=== PATIENT | male | born 1940 | race Caucasian/White ===

== ENCOUNTER 2025-09-07 15:00 | Outpatient (AMB) | payer MEDICARE, SELFPAY ==
--- NOTE | 2025-09-07 15:05 | HO.NEPHOV ---
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 Required: No Accompanied by: Self / Same As Patient Allergies No Known Allergies Allergy (Verified 09/07/25 15:08) Medication List - Last Reconciled 09/07/25 by Juan Hopkins MD aspirin 81 mg PO DAILY atorvastatin 80 mg PO DAILY dapagliflozin propanediol (Farxiga) 10 mg PO DAILY ferrous sulfate 325 mg PO DAILY metoprolol succinate ER 25 mg PO DAILY pantoprazole 40 mg PO DAILY sacubitril-valsartan 24-26 mg (Entresto) 1 tab PO BID HPI Comments Details: Ashwin is a pleasant 84-year-old male referred for evaluation of CKD Recent labs showed a creatinine of 1.43, and his kidney function is estimated to be at 48%. EGFR was 48 mL/minute. The patient has a significant cardiac history including coronary artery disease, hypertension, hyperlipidemia, acute and chronic congestive heart failure, and ischemic cardiomyopathy with an ejection fraction of 25-30%. He has atrial fibrillation and underwent a Watchman procedure last week. The patient reports occasional dizziness for a few seconds upon getting up from bed in the morning. His medications include Farxiga 10 mg and Entresto; he takes Lasix as needed for a three-pound weight gain in one day or for coughing. f He reports long-standing urinary hesitancy, noting a slow stream, but denies other urinary issues. He has not had a prior kidney ultrasound. He has significant anemia with a recent hemoglobin of 8.8; a lab from the prior year showed a hemoglobin of 9.9. He has a history of a GI bleed requiring a transfusion and is currently taking iron tablets, which cause his stool to be black. He also reports a past bleeding complication from blood thinners. The patient lives with his and is a former smoker, having quit 30-40 years ago. He is careful with his salt intake for his heart condition. There is no family history of cancer. [facility] Medical History (Updated 09/07/25 @ 15:28 by Juan Hopkins MD) New onset atrial fibrillation Ischemic cardiomyopathy Iron deficiency anemia GERD (gastroesophageal reflux disease) Hyperlipidemia Hypertension CAD (coronary artery disease) Review of Systems Const Denies fever(s) and Denies weight loss Card Denies chest pain Resp Denies cough and Denies hemoptysis GI Denies abdominal pain, Denies diarrhea and Denies nausea Musc Denies back pain Neuro Denies focal weakness Physical Exam Vital Signs: Last Vital Signs Pulse 120 H 09/07/25 15:06 BP 100/52 L 09/07/25 15:06 Pulse Ox 98 09/07/25 15:06 Oxygen Delivery Method Room Air 09/07/25 15:06 BMI result Body Mass Index 30.2 Comfortable Neck supple no JVD. Lungs entry equal no rales. Heart S1-S2 heard no gallop or rub. Abdomen soft nontender. Neuro alert awake oriented. No asterixis. Extremities no edema. Results Reviewed Results Reviewed: 08/22/2025 BUN 30 creatinine 1.43 EGFR 48 mL/minute Sodium 146 potassium 4.4 urine albumin creatinine ratio 32 hemoglobin 8.8 MCV 97 iron 59 TIBC 213 platelets 82,000 Assessment & Plan Assessment & Plan (1) CKD (chronic kidney disease): Code(s): N18.9 - Chronic kidney disease, unspecified Category: Medical (2) Anemia: Code(s): D64.9 - Anemia, unspecified Category: Medical Plan 1. Chronic Kidney Disease Stage III - The patient's kidney function is at 48%, Most likely due to the combination of chronic hypoperfusion in the setting of low cardiac output and age-related nephron loss. Obstructive uropathy should certainly be ruled out. Based on recent urine studies I do not believe he has any active glomerular nephritis or interstitial disease. Goal is to slow the progression of renal disease - No medications were made today and continue current medications, including Entresto, Avoid hypotension and nephrotoxic agents - The patient was counseled to follow a low-salt diet and to avoid NSAIDs such as Aleve, Advil, and Motrin. - A kidney ultrasound and repeat bloodwork will be ordered to be completed before the next visit. - Follow-up is scheduled for October. We will screen for secondary hyperparathyroidism prior to next visit. 2. Congestive Heart Failure Currently appears euvolemic - The patient's blood pressure is noted to be low, which is an expected effect of his medication, Entresto. - Current medications, including Farxiga and Entresto, will be continued without changes. - The patient will continue to monitor for signs of fluid retention and use Lasix as needed. 3. 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 - The patient has significant anemia with a hemoglobin of 8.8. - He is taking iron supplements, which can cause black stools. - Hemoglobin levels will be monitored via a blood test in approximately six weeks. We will reassess hemoglobin and decide if he will benefit from erythropoietin replacement therapy. Orders: Orders Basic Metabolic Panel 6 Weeks N18.9 - Chronic kidney disease, unspecified Complete Blood Count Auto Diff 6 Weeks N18.9 - Chronic kidney disease, unspecified US renal BI 6 Weeks N18.9 - Chronic kidney disease, unspecified Parathyroid Hormone Intact 6 Weeks N18.9 - Chronic kidney disease, unspecified UA and rflx microscopic 6 Weeks N18.9 - Chronic kidney disease, unspecified Coding Level of Care Code New Pt Level 4 (61012) Diagnoses CKD (chronic kidney disease) N18.9 Anemia D64.9
[2025-09-07 15:06] VITALS: BP 100/52; PULSE 120; O2SAT 98; BMI 30.2
--- OUTSIDE RECORDS SUMMARY | 2025-09-08 03:36 | XMS_ITS | Patient Health Record ---
Author Organization [email or web address] Address [address] [place] [address] Care Team Providers Care Order Takers Supervisor Name Role Phone OZZY ANDERSON Primary Care Provider [phone] Allergies No Known Allergies Results Component Value Reference Range Notes [id number] Reviewed date:08/23/2025 05:48:06 PM Interpretation: Performing Lab:[facility], [address], Phone - [phone], Director - MDJodry Notes/Report: Ferritin 276 30-400 ng/mL Iron and TIBC-[id number] Reviewed date:08/23/2025 05:48:10 PM Interpretation: Performing Lab:[facility], [address], Phone - [phone], Director - MDJodry Notes/Report: Iron Bind.Cap.(TIBC) 213 250-450 ug/dL UIBC 154 111-343 ug/dL Iron 59 38-169 ug/dL Iron Saturation 28 15-55 % CBC, Platelet, No Differenti al-[id number] Reviewed date:08/23/2025 05:48:14 PM Interpretation: Performing Lab:[facility], [address], Phone - [phone], Director - MDJodry Notes/Report: WBC 3.0 3.4-10.8 x10E3/uL RBC 3.06 4.14-5.80 x10E6/uL Hemoglobin 8.8 13.0-17.7 g/dL Hematocrit 29.6 37.5-51.0 % MCV 97 79-97 fL MCH 28.8 26.6-33.0 pg MCHC 29.7 31.5-35.7 g/dL RDW 18.6 11.6-15.4 % Platelets 82 150-450 x10E3/uL Hematology Comments: Note: CBC met reflex criteria for review of peripheral smear by medical laboratory professional. Automated results were confirmed by smear review. Albumin/Creatinine Ratio,Uri [id number] Reviewed date:08/23/2025 05:48:21 PM Interpretation: Performing Lab:[facility], [address] [place] [address], Phone - [phone], Director - MDdry Notes/Report: Creatinine, Urine 101.8 Not Estab. mg/dL Albumin, Urine 32.8 Not Estab. ug/mL Alb/Creat Ratio 32 0-29 mg/g creat Normal: 0 - 29 Moderately increased: 30 - 300 Severely increased: >300 Lipid Panel-[id number] Reviewed date:08/23/2025 05:48:25 PM Interpretation: Performing Lab:[facility], [address] [place] [address], Phone - [phone], Director - [facility] Notes/Report: Cholesterol, Total 72 100-199 mg/dL Triglycerides 91 0-149 mg/dL HDL Cholesterol 21 >39 mg/dL VLDL Cholesterol Ga 18 5-40 mg/dL LDL Chol Calc (NIH) 33 0-99 mg/dL Comp. Metabolic Panel ([id number] Reviewed date:08/23/2025 05:48:31 PM Interpretation: Performing Lab:[facility], [address] [place] [address], Phone - [phone], Director - [facility] Notes/Report: Glucose 99 70-99 mg/dL BUN 30 8-27 mg/dL Creatinine 1.43 0.76-1.27 mg/dL eGFR 48 >59 mL/min/1.73 BUN/Creatinine Ratio 21 10-24 Sodium 146 134-144 mmol/L Potassium 4.4 3.5-5.2 mmol/L Chloride 110 96-106 mmol/L Carbon Dioxide, Total 21 20-29 mmol/L Calcium 8.8 8.6-10.2 mg/dL Protein, Total 6.9 6.0-8.5 g/dL Albumin 4.2 3.7-4.7 g/dL Globulin, Total 2.7 1.5-4.5 g/dL Bilirubin, Total 2.0 0.0-1.2 mg/dL Alkaline Phosphatase 164 48-129 IU/L AST (SGOT) 12 0-40 IU/L ALT (SGPT) 10 0-44 IU/L Reason For Referral Reason CKD STAGE 3A- DR AHMET MELTON Please evaluate and treat Diagnosis 1 Chronic kidney disea se, stage 3a (N18.31) Referral Organization [facility] Referring Provider First Name OZZY Referring Provider Last Name JUSTIN Referring Provider Speciality Internal M edicine Referred Provider Specialty Nephrology General Notes Please call the marck ent to schedule the appointment, Encounter Darnell meek Charmain 08/29/2025 04:14:42 PM > Referral Priority Routine Medications Medication SIG (Take, Route, Frequency, Duration) Notes Start Date End Date Status Pantoprazole Sodium 40 MG 1 tablet Orall y Once a day Active Metoprolol Succinate ER 50 MG 1 tablet Orally Once a day; Duration: 90 days Active Atorvastatin Calcium 80 MG 1 tablet Orally Once a day; Duration: 90 days Active Isosorbide Mononitrate ER 30 MG 1 tablet in the morning Orally Once a day Not-Taking Farxiga 10 MG 1 tablet Orally Once a day Active Iron 325 (65 Fe) MG 1 tablet Orally twic e a day Active Aspir-Low 81 MG 1 tablet Orally Once a day Active Social History Tobacco Use: Social History Observation Description Date Details (start date - stop date) Former Smoker NA - NA Tobacco Use/Smoking Question Answer Notes Are you a former smoker How long has it been since you last smoked? > 10 years Problems Problem Type SNOMED Code ICD Code Onset Dates Problem Status W/U Status Risk Notes Problem Iron deficiency anemia (35826034) Iron deficiency anemia, unspecified (D50.9) Active confirmed Problem Anemia (193879624) Anemia, unspecified (D64.9) Active confirmed Problem Mixed hyperlipidemia (121123144) Mixed hyperlipidemia (E78.2) Active confirmed Problem Atherosclerotic heart disease of [place] coronary artery without angina pectoris (348997145185206) Atherosclerotic heart disease of [place] coronary artery without angina pectoris (I25.10) Active confirmed Problem Aortic valve disorder (8082457) Nonrheumatic aortic (valve) stenosis (I35.0) Active confirmed Problem Chronic systolic heart failure (850575595) Chronic systolic (congestive) heart failure (I50.22) Active confirmed Problem Gastro-esophageal reflux disease without esophagitis (917142747) Gastro-esophageal reflux disease without esophagitis (K21.9) Active confirmed Problem Essential hypertension (90615080) Essential (primary) hypertension (I10) Active confirmed Problem Chronic kidney disease stage 3A (disorder) (494530416) Chronic kidney disease, stage 3a (N18.31) Active confirmed Vital Signs Heart Rate 100 /min 08/25/2025 Temperature 96.2 degrees Fahrenheit 08/25/2025 Oximetry 96 % 08/25/2025 Blood pressure diastolic 68 mm Hg 08/25/2025 Height 5'6 in 08/25/2025 Blood pressure systolic 110 mm Hg 08/25/2025 Weight 192.9 lbs 08/25/2025 BMI 31.13 kg/m2 08/25/2025 Encounters Encounter Location Date Provider Diagnosis [address] [place] [address] 09/14/2024 OZZY ANDERSON Atherosclerotic hear t disease of [place] coronary artery without angina pectoris I25.10 ; Essential (primary) hypertension I10 ; Mixed hyperlipidemia E78.2 ; Gastro-esophageal reflux disease without esophagitis K21.9 and Iron deficiency anemia, unspecified D50.[address] [place] [address] 02/22/2025 OZZY ANDERSON Encounter for genera l adult medical examination without abnormal findings Z00.00 ; Atherosclerotic heart disease of [place] coronary artery without angina pectoris I25.10 ; Essential (primary) hypertension I10 ; Mixed hyperlipidemia E78.2 ; Gastro-esophageal reflux disease without esophagitis K21.9 ; Iron deficiency anemia, unspecified D50.9 ; Chronic kidney disease, stage 3a N18.31 and Nonrheumatic aortic (valve) stenosis I35.[address] [place] [address] 08/25/2025 OZZY ANDERSON Essential (primary) hypertension I10 ; Chronic systolic (congestive) heart failure I50.22 ; Atherosclerotic heart disease of [place] coronary artery without angina pectoris I25.10 ; Mixed hyperlipidemia E78.2 ; Gastro-esophageal reflux disease without esophagitis K21.9 ; Iron deficiency anemia, unspecified D50.9 ; Chronic kidney disease, stage 3a N18.31 ; Nonrheumatic aortic (valve) stenosis I35.0 and Anemia, unspecified D64.9 [facility] [address] [place] [address] 09/13/2024 [facility] [address] [place] [address] 01/20/[address] [place] [address] 01/20/[address] [place] [address] 02/25/[address] [place] [address] 08/29/2025 [facility] Assessments Encounter Date Diagnosis (ICD Code) Assessment Notes Treatment Notes Treatment Clinical Notes Section Notes 09/14/2024 Atherosclerotic heart disease of [place] coronary artery without angina pectoris (ICD-10 - I25.10) Mr Ryan is an 83-year-old gentleman with CAD, hypertension, hyperlipidemia, GERD and iron deficiency anemia here for follow up after hospital admission for chest pain. Plan is as follows: Chest pain. Work up in the hospital was negative. It could have been musculoskeletal pain because he was working in his backyard for long hours. He was given isosorbide mononitrate ER 30 mg on discharge. Continue current medication and no need for any further intervention. CAD. s/p stent placement x2, first was in 2002 and second placement was in April 2023. He is on right medications and he follows up with Cardiology. Hypertension. Blood pressure well controlled on current regimen. Hyperlipidemia. Continue Atorvastatin 80 MG daily. GERD/upper GI bleed. Stable on Pantoprazole 40 MG once a day. Iron deficiency anemia. Continue iron supplements three times a week. Screening blood work before next appointment. General health concerns discussed with patient. Scribe services used to formulate this note under HIPAA compliance and under [place] law mandated for scribe services. Patient aware of service. Verbal consent and written consent taken from the patient. Patient understands and verbalizes understanding of the scribes services and all questions answered regarding scribes services. Patient agrees to use of scribes services. 09/14/2024 Essential (primary) hypertension (ICD-10 - I10) Mr Ryan is an 83-year-old gentleman with CAD, hypertension, hyperlipidemia, GERD and iron deficiency anemia here for follow up after hospital admission for chest pain. Plan is as follows: Chest pain. Work up in the hospital was negative. It could have been musculoskeletal pain because he was working in his backyard for long hours. He was given isosorbide mononitrate ER 30 mg on discharge. Continue current medication and no need for any further intervention. CAD. s/p stent placement x2, first was in 2002 and second placement was in April 2023. He is on right medications and he follows up with Cardiology. Hypertension. Blood pressure well controlled on current regimen. Hyperlipidemia. Continue Atorvastatin 80 MG daily. GERD/upper GI bleed. Stable on Pantoprazole 40 MG once a day. Iron deficiency anemia. Continue iron supplements three times a week. Screening blood work before next appointment. General health concerns discussed with patient. Scribe services used to formulate this note under HIPAA compliance and under [place] law mandated for scribe services. Patient aware of service. Verbal consent and written consent taken from the patient. Patient understands and verbalizes understanding of the scribes services and all questions answered regarding scribes services. Patient agrees to use of scribes services. 02/22/2025 Atherosclerotic heart disease of [place] coronary artery without angina pectoris (ICD-10 - I25.10) Mr. Ryan is pleasant 84-year-old gentleman with coronary artery disease and status post PCI to mid and distal RCA in 2002 followed by PCI to mid LAD in 2015 and again in March 2023, new onset atrial fibrillation, lower GI bleed and had 8 units of packed red blood cells, acid reflux, chronic kidney disease stage IIIa, hypertension, hyperlipidemia and obesity is here for annual physical. He was recently admitted at [facility] and was found to have new onset atrial fibrillation with RVR and acute on chronic congestive heart failure. He recently saw his sheeter machine operator Dr. Maria. Plan is as follows Ischemic cardiomyopathy/CHF with preserved EF. His EF was 50% but on last admission at [facility] EF is 25-30%. He was taken off Lasix and started on Farxiga 10 mg along with beta-blockers. advised to do daily weights, avoids salt and if his weight is going up he will take Lasix as needed and inform us. New onset atrial fibrillation. He is not a candidate for anticoagulation because of his GI bleed. Currently on aspirin and he has appointment for watchman procedure. Severe to moderate aortic stenosis. Cardiology will do periodic echocardiogram for surveillance. Hypertension/hyper lipidemia. Blood pressure reasonably controlled on current regimen. He is on atorvastatin 80 mg daily which she will continue and check blood work GI bleed/acid reflux. Continue Protonix 40 mg daily. Obesity. Dietary restrictions discussed and advised to lose on average 6 pounds a month. He is up-to-date on age specific screening. He is full code and his is his healthcare proxy. 02/22/2025 Encounter for general adult medical examination without abnormal findings (ICD-10 - Z00.00) Mr. Ryan is pleasant 84-year-old gentleman with coronary artery disease and status post PCI to mid and distal RCA in 2002 followed by PCI to mid LAD in 2015 and again in March 2023, new onset atrial fibrillation, lower GI bleed and had 8 units of packed red blood cells, acid reflux, chronic kidney disease stage IIIa, hypertension, hyperlipidemia and obesity is here for annual physical. He was recently admitted at [facility] and was found to have new onset atrial fibrillation with RVR and acute on chronic congestive heart failure. He recently saw his sheeter machine operator Dr. Maria. Plan is as follows Ischemic cardiomyopathy/CHF with preserved EF. His EF was 50% but on last admission at [facility] EF is 25-30%. He was taken off Lasix and started on Farxiga 10 mg along with beta-blockers. advised to do daily weights, avoids salt and if his weight is going up he will take Lasix as needed and inform us. New onset atrial fibrillation. He is not a candidate for anticoagulation because of his GI bleed. Currently on aspirin and he has appointment for watchman procedure. Severe to moderate aortic stenosis. Cardiology will do periodic echocardiogram for surveillance. Hypertension/hyper lipidemia. Blood pressure reasonably controlled on current regimen. He is on atorvastatin 80 mg daily which she will continue and check blood work GI bleed/acid reflux. Continue Protonix 40 mg daily. Obesity. Dietary restrictions discussed and advised to lose on average 6 pounds a month. He is up-to-date on age specific screening. He is full code and his is his healthcare proxy. 08/25/2025 Chronic systolic (congestive) heart failure (ICD-10 - I50.22) Mr. Ryan is carol 84-year-old gentleman with coronary artery disease and status post PCI to mid and distal RCA in 2002 followed by PCI to mid LAD in 2015 and again in March 2023, new onset atrial fibrillation, lower GI bleed and had 8 units of packed red blood cells, acid reflux, chronic kidney disease stage IIIa, hypertension, hyperlipidemia and obesity is here for follow-up on blood work He was recently admitted at [facility] and was found to have new onset atrial fibrillation with RVR and acute on chronic Congestive heart failure. He recently saw his sheeter machine operator Dr. Maria. Plan is as follows Ischemic cardiomyopathy/CHF with preserved EF. His EF was 50% but on last admission at [facility] EF is 25-30%. He was taken off Lasix and started on Farxiga 10 mg along with beta-blockers. advised to do daily weights, avoids salt and if his weight is going up he will take Lasix as needed and inform us. New onset atrial fibrillation. He is not a candidate for anticoagulation because of his GI bleed. Currently on aspirin and he has appointment for watchman procedure. Severe to moderate aortic stenosis. Cardiology will do periodic echocardiogram for surveillance. Hypertension/hyper lipidemia. Blood pressure reasonably controlled on current regimen. He is on atorvastatin 80 mg daily which she will continue and check blood work. Chronic kidney disease stage IIIa. He is stable at this point in time. He is on the right medications. Avoid NSAIDs. Daily weights. GI bleed/acid reflux. Continue Protonix 40 mg daily. Anemia. Continue ferrous sulfate 325 mg 1 tablet twice a day. Obesity. Dietary restrictions discussed and advised to lose on average 6 pounds a month. He is up-to-date on age specific screening. He is full code and his is his healthcare proxy. 08/25/2025 Essential (primary) hypertension (ICD-10 - I10) Mr. Ryan is carol 84-year-old gentleman with coronary artery disease and status post PCI to mid and distal RCA in 2002 followed by PCI to mid LAD in 2015 and again in March 2023, new onset atrial fibrillation, lower GI bleed and had 8 units of packed red blood cells, acid reflux, chronic kidney disease stage IIIa, hypertension, hyperlipidemia and obesity is here for follow-up on blood work He was recently admitted at [facility] and was found to have new onset atrial fibrillation with RVR and acute on chronic Congestive heart failure. He recently saw his sheeter machine operator Dr. Maria. Plan is as follows Ischemic cardiomyopathy/CHF with preserved EF. His EF was 50% but on last admission at [facility] EF is 25-30%. He was taken off Lasix and started on Farxiga 10 mg along with beta-blockers. advised to do daily weights, avoids salt and if his weight is going up he will take Lasix as needed and inform us. New onset atrial fibrillation. He is not a candidate for anticoagulation because of his GI bleed. Currently on aspirin and he has appointment for watchman procedure. Severe to moderate aortic stenosis. Cardiology will do periodic echocardiogram for surveillance. Hypertension/hyper lipidemia. Blood pressure reasonably controlled on current regimen. He is on atorvastatin 80 mg daily which she will continue and check blood work. Chronic kidney disease stage IIIa. He is stable at this point in time. He is on the right medications. Avoid NSAIDs. Daily weights. GI bleed/acid reflux. Continue Protonix 40 mg daily. Anemia. Continue ferrous sulfate 325 mg 1 tablet twice a day. Obesity. Dietary restrictions discussed and advised to lose on average 6 pounds a month. He is up-to-date on age specific screening. He is full code and his is his healthcare proxy. 02/22/2025 Essential (primary) hypertension (ICD-10 - I10) Mr. Ryan is pleasant 84-year-old gentleman with coronary artery disease and status post PCI to mid and distal RCA in 2002 followed by PCI to mid LAD in 2015 and again in March 2023, new onset atrial fibrillation, lower GI bleed and had 8 units of packed red blood cells, acid reflux, chronic kidney disease stage IIIa, hypertension, hyperlipidemia and obesity is here for annual physical. He was recently admitted at [facility] and was found to have new onset atrial fibrillation with RVR and acute on chronic congestive heart failure. He recently saw his sheeter machine operator Dr. Maria. Plan is as follows Ischemic cardiomyopathy/CHF with preserved EF. His EF was 50% but on last admission at [facility] EF is 25-30%. He was taken off Lasix and started on Farxiga 10 mg along with beta-blockers. advised to do daily weights, avoids salt and if his weight is going up he will take Lasix as needed and inform us. New onset atrial fibrillation. He is not a candidate for anticoagulation because of his GI bleed. Currently on aspirin and he has appointment for watchman procedure. Severe to moderate aortic stenosis. Cardiology will do periodic echocardiogram for surveillance. Hypertension/hyper lipidemia. Blood pressure reasonably controlled on current regimen. He is on atorvastatin 80 mg daily which she will continue and check blood work GI bleed/acid reflux. Continue Protonix 40 mg daily. Obesity. Dietary restrictions discussed and advised to lose on average 6 pounds a month. He is up-to-date on age specific screening. He is full code and his is his healthcare proxy. 08/25/2025 Atherosclerotic heart disease of [place] coronary artery without angina pectoris (ICD-10 - I25.10) Mr. Ryan is pleasant 84-year-old gentleman with coronary artery disease and status post PCI to mid and distal RCA in 2002 followed by PCI to mid LAD in 2015 and again in March 2023, new onset atrial fibrillation, lower GI bleed and had 8 units of packed red blood cells, acid reflux, chronic kidney disease stage IIIa, hypertension, hyperlipidemia and obesity is here for follow-up on blood work He was recently admitted at [facility] and was found to have new onset atrial fibrillation with RVR and acute on chronic Congestive heart failure. He recently saw his sheeter machine operator Dr. Maria. Plan is as follows Ischemic cardiomyopathy/CHF with preserved EF. His EF was 50% but on last admission at [facility] EF is 25-30%. He was taken off Lasix and started on Farxiga 10 mg along with beta-blockers. advised to do daily weights, avoids salt and if his weight is going up he will take Lasix as needed and inform us. New onset atrial fibrillation. He is not a candidate for anticoagulation because of his GI bleed. Currently on aspirin and he has appointment for watchman procedure. Severe to moderate aortic stenosis. Cardiology will do periodic echocardiogram for surveillance. Hypertension/hyper lipidemia. Blood pressure reasonably controlled on current regimen. He is on atorvastatin 80 mg daily which she will continue and check blood work. Chronic kidney disease stage IIIa. He is stable at this point in time. He is on the right medications. Avoid NSAIDs. Daily weights. GI bleed/acid reflux. Continue Protonix 40 mg daily. Anemia. Continue ferrous sulfate 325 mg 1 tablet twice a day. Obesity. Dietary restrictions discussed and advised to lose on average 6 pounds a month. He is up-to-date on age specific screening. He is full code and his is his healthcare proxy. 09/14/2024 Mixed hyperlipidemia (ICD-10 - E78.2) Mr Ryan is an 83-year-old gentleman with CAD, hypertension, hyperlipidemia, GERD and iron deficiency anemia here for follow up after hospital admission for chest pain. Plan is as follows: Chest pain. Work up in the hospital was negative. It could have been musculoskeletal pain because he was working in his backyard for long hours. He was given isosorbide mononitrate ER 30 mg on discharge. Continue current medication and no need for any further intervention. CAD. s/p stent placement x2, first was in 2002 and second placement was in April 2023. He is on right medications and he follows up with Cardiology. Hypertension. Blood pressure well controlled on current regimen. Hyperlipidemia. Continue Atorvastatin 80 MG daily. GERD/upper GI bleed. Stable on Pantoprazole 40 MG once a day. Iron deficiency anemia. Continue iron supplements three times a week. Screening blood work before next appointment. General health concerns discussed with patient. Scribe services used to formulate this note under HIPAA compliance and under [place] law mandated for scribe services. Patient aware of service. Verbal consent and written consent taken from the patient. Patient understands and verbalizes understanding of the scribes services and all questions answered regarding scribes services. Patient agrees to use of scribes services. 02/22/2025 Mixed hyperlipidemia (ICD-10 - E78.2) Mr. Ryan is pleasant 84-year-old gentleman with coronary artery disease and status post PCI to mid and distal RCA in 2002 followed by PCI to mid LAD in 2015 and again in March 2023, new onset atrial fibrillation, lower GI bleed and had 8 units of packed red blood cells, acid reflux, chronic kidney disease stage IIIa, hypertension, hyperlipidemia and obesity is here for annual physical. He was recently admitted at [facility] and was found to have new onset atrial fibrillation with RVR and acute on chronic congestive heart failure. He recently saw his sheeter machine operator Dr. Maria. Plan is as follows Ischemic cardiomyopathy/CHF with preserved EF. His EF was 50% but on last admission at [facility] EF is 25-30%. He was taken off Lasix and started on Farxiga 10 mg along with beta-blockers. advised to do daily weights, avoids salt and if his weight is going up he will take Lasix as needed and inform us. New onset atrial fibrillation. He is not a candidate for anticoagulation because of his GI bleed. Currently on aspirin and he has appointment for watchman procedure. Severe to moderate aortic stenosis. Cardiology will do periodic echocardiogram for surveillance. Hypertension/hyper lipidemia. Blood pressure reasonably controlled on current regimen. He is on atorvastatin 80 mg daily which she will continue and check blood work GI bleed/acid reflux. Continue Protonix 40 mg daily. Obesity. Dietary restrictions discussed and advised to lose on average 6 pounds a month. He is up-to-date on age specific screening. He is full code and his is his healthcare proxy. 09/14/2024 Gastro-esophageal reflux disease without esophagitis (ICD-10 - K21.9) Mr Ryan is an 83-year-old gentleman with CAD, hypertension, hyperlipidemia, GERD and iron deficiency anemia here for follow up after hospital admission for chest pain. Plan is as follows: Chest pain. Work up in the hospital was negative. It could have been musculoskeletal pain because he was working in his backyard for long hours. He was given isosorbide mononitrate ER 30 mg on discharge. Continue current medication and no need for any further intervention. CAD. s/p stent placement x2, first was in 2002 and second placement was in April 2023. He is on right medications and he follows up with Cardiology. Hypertension. Blood pressure well controlled on current regimen. Hyperlipidemia. Continue Atorvastatin 80 MG daily. GERD/upper GI bleed. Stable on Pantoprazole 40 MG once a day. Iron deficiency anemia. Continue iron supplements three times a week. Screening blood work before next appointment. General health concerns discussed with patient. Scribe services used to formulate this note under HIPAA compliance and under [place] law mandated for scribe services. Patient aware of service. Verbal consent and written consent taken from the patient. Patient understands and verbalizes understanding of the scribes services and all questions answered regarding scribes services. Patient agrees to use of scribes services. 08/25/2025 Mixed hyperlipidemia (ICD-10 - E78.2) Mr. Ryan is pleasant 84-year-old gentleman with coronary artery disease and status post PCI to mid and distal RCA in 2002 followed by PCI to mid LAD in 2015 and again in March 2023, new onset atrial fibrillation, lower GI bleed and had 8 units of packed red blood cells, acid reflux, chronic kidney disease stage IIIa, hypertension, hyperlipidemia and obesity is here for follow-up on blood work He was recently admitted at [facility] and was found to have new onset atrial fibrillation with RVR and acute on chronic Congestive heart failure. He recently saw his sheeter machine operator Dr. Maria. Plan is as follows Ischemic cardiomyopathy/CHF with preserved EF. His EF was 50% but on last admission at [facility] EF is 25-30%. He was taken off Lasix and started on Farxiga 10 mg along with beta-blockers. advised to do daily weights, avoids salt and if his weight is going up he will take Lasix as needed and inform us. New onset atrial fibrillation. He is not a candidate for anticoagulation because of his GI bleed. Currently on aspirin and he has appointment for watchman procedure. Severe to moderate aortic stenosis. Cardiology will do periodic echocardiogram for surveillance. Hypertension/hyper lipidemia. Blood pressure reasonably controlled on current regimen. He is on atorvastatin 80 mg daily which she will continue and check blood work. Chronic kidney disease stage IIIa. He is stable at this point in time. He is on the right medications. Avoid NSAIDs. Daily weights. GI bleed/acid reflux. Continue Protonix 40 mg daily. Anemia. Continue ferrous sulfate 325 mg 1 tablet twice a day. Obesity. Dietary restrictions discussed and advised to lose on average 6 pounds a month. He is up-to-date on age specific screening. He is full code and his is his healthcare proxy. 02/22/2025 Gastro-esophageal reflux disease without esophagitis (ICD-10 - K21.9) Mr. Ryan is pleasant 84-year-old gentleman with coronary artery disease and status post PCI to mid and distal RCA in 2003 followed by PCI to mid LAD in 2015 and again in March 2023, new onset atrial fibrillation, lower GI bleed and had 8 units of packed red blood cells, acid reflux, chronic kidney disease stage IIIa, hypertension, hyperlipidemia and obesity is here for annual physical. He was recently admitted at [facility] and was found to have new onset atrial fibrillation with RVR and acute on chronic congestive heart failure. He recently saw his sheeter machine operator Dr. Maria. Plan is as follows Ischemic cardiomyopathy/CHF with preserved EF. His EF was 50% but on last admission at [facility] EF is 25-30%. He was taken off Lasix and started on Farxiga 10 mg along with beta-blockers. advised to do daily weights, avoids salt and if his weight is going up he will take Lasix as needed and inform us. New onset atrial fibrillation. He is not a candidate for anticoagulation because of his GI bleed. Currently on aspirin and he has appointment for watchman procedure. Severe to moderate aortic stenosis. Cardiology will do periodic echocardiogram for surveillance. Hypertension/hyper lipidemia. Blood pressure reasonably controlled on current regimen. He is on atorvastatin 80 mg daily which she will continue and check blood work GI bleed/acid reflux. Continue Protonix 40 mg daily. Obesity. Dietary restrictions discussed and advised to lose on average 6 pounds a month. He is up-to-date on age specific screening. He is full code and his is his healthcare proxy. 09/14/2024 Iron deficiency anemia, unspecified (ICD-10 - D50.9) Mr Ryan is an 83-year-old gentleman with CAD, hypertension, hyperlipidemia, GERD and iron deficiency anemia here for follow up after hospital admission for chest pain. Plan is as follows: Chest pain. Work up in the hospital was negative. It could have been musculoskeletal pain because he was working in his backyard for long hours. He was given isosorbide mononitrate ER 30 mg on discharge. Continue current medication and no need for any further intervention. CAD. s/p stent placement x2, first was in 2002 and second placement was in April 2023. He is on right medications and he follows up with Cardiology. Hypertension. Blood pressure well controlled on current regimen. Hyperlipidemia. Continue Atorvastatin 80 MG daily. GERD/upper GI bleed. Stable on Pantoprazole 40 MG once a day. Iron deficiency anemia. Continue iron supplements three times a week. Screening blood work before next appointment. General health concerns discussed with patient. Scribe services used to formulate this note under HIPAA compliance and under [place] law mandated for scribe services. Patient aware of service. Verbal consent and written consent taken from the patient. Patient understands and verbalizes understanding of the scribes services and all questions answered regarding scribes services. Patient agrees to use of scribes services. 08/25/2025 Gastro-esophageal reflux disease without esophagitis (ICD-10 - K21.9) Mr. Ryan is pleasant 84-year-old gentleman with coronary artery disease and status post PCI to mid and distal RCA in 2002 followed by PCI to mid LAD in 2015 and again in March 2023, new onset atrial fibrillation, lower GI bleed and had 8 units of packed red blood cells, acid reflux, chronic kidney disease stage IIIa, hypertension, hyperlipidemia and obesity is here for follow-up on blood work He was recently admitted at [facility] and was found to have new onset atrial fibrillation with RVR and acute on chronic Congestive heart failure. He recently saw his sheeter machine operator Dr. Maria. Plan is as follows Ischemic cardiomyopathy/CHF with preserved EF. His EF was 50% but on last admission at [facility] EF is 25-30%. He was taken off Lasix and started on Farxiga 10 mg along with beta-blockers. advised to do daily weights, avoids salt and if his weight is going up he will take Lasix as needed and inform us. New onset atrial fibrillation. He is not a candidate for anticoagulation because of his GI bleed. Currently on aspirin and he has appointment for watchman procedure. Severe to moderate aortic stenosis. Cardiology will do periodic echocardiogram for surveillance. Hypertension/hyper lipidemia. Blood pressure reasonably controlled on current regimen. He is on atorvastatin 80 mg daily which she will continue and check blood work. Chronic kidney disease stage IIIa. He is stable at this point in time. He is on the right medications. Avoid NSAIDs. Daily weights. GI bleed/acid reflux. Continue Protonix 40 mg daily. Anemia. Continue ferrous sulfate 325 mg 1 tablet twice a day. Obesity. Dietary restrictions discussed and advised to lose on average 6 pounds a month. He is up-to-date on age specific screening. He is full code and his is his healthcare proxy. 08/25/2025 Iron deficiency anemia, unspecified (ICD-10 - D50.9) Mr. Ryan is carol 84-year-old gentleman with coronary artery disease and status post PCI to mid and distal RCA in 2002 followed by PCI to mid LAD in 2015 and again in March 2023, new onset atrial fibrillation, lower GI bleed and had 8 units of packed red blood cells, acid reflux, chronic kidney disease stage IIIa, hypertension, hyperlipidemia and obesity is here for follow-up on blood work He was recently admitted at [facility] and was found to have new onset atrial fibrillation with RVR and acute on chronic Congestive heart failure. He recently saw his sheeter machine operator Dr. Maria. Plan is as follows Ischemic cardiomyopathy/CHF with preserved EF. His EF was 50% but on last admission at [facility] EF is 25-30%. He was taken off Lasix and started on Farxiga 10 mg along with beta-blockers. advised to do daily weights, avoids salt and if his weight is going up he will take Lasix as needed and inform us. New onset atrial fibrillation. He is not a candidate for anticoagulation because of his GI bleed. Currently on aspirin and he has appointment for watchman procedure. Severe to moderate aortic stenosis. Cardiology will do periodic echocardiogram for surveillance. Hypertension/hyper lipidemia. Blood pressure reasonably controlled on current regimen. He is on atorvastatin 80 mg daily which she will continue and check blood work. Chronic kidney disease stage IIIa. He is stable at this point in time. He is on the right medications. Avoid NSAIDs. Daily weights. GI bleed/acid reflux. Continue Protonix 40 mg daily. Anemia. Continue ferrous sulfate 325 mg 1 tablet twice a day. Obesity. Dietary restrictions discussed and advised to lose on average 6 pounds a month. He is up-to-date on age specific screening. He is full code and his is his healthcare proxy. 02/22/2025 Iron deficiency anemia, unspecified (ICD-10 - D50.9) Mr. Ryan is pleasant 84-year-old gentleman with coronary artery disease and status post PCI to mid and distal RCA in 2002 followed by PCI to mid LAD in 2015 and again in March 2023, new onset atrial fibrillation, lower GI bleed and had 8 units of packed red blood cells, acid reflux, chronic kidney disease stage IIIa, hypertension, hyperlipidemia and obesity is here for annual physical. He was recently admitted at [facility] and was found to have new onset atrial fibrillation with RVR and acute on chronic congestive heart failure. He recently saw his sheeter machine operator Dr. Maria. Plan is as follows Ischemic cardiomyopathy/CHF with preserved EF. His EF was 50% but on last admission at [facility] EF is 25-30%. He was taken off Lasix and started on Farxiga 10 mg along with beta-blockers. advised to do daily weights, avoids salt and if his weight is going up he will take Lasix as needed and inform us. New onset atrial fibrillation. He is not a candidate for anticoagulation because of his GI bleed. Currently on aspirin and he has appointment for watchman procedure. Severe to moderate aortic stenosis. Cardiology will do periodic echocardiogram for surveillance. Hypertension/hyper lipidemia. Blood pressure reasonably controlled on current regimen. He is on atorvastatin 80 mg daily which she will continue and check blood work GI bleed/acid reflux. Continue Protonix 40 mg daily. Obesity. Dietary restrictions discussed and advised to lose on average 6 pounds a month. He is up-to-date on age specific screening. He is full code and his is his healthcare proxy. 02/22/2025 Chronic kidney disease, stage 3a (ICD-10 - N18.31) Mr. Ryan is pleasant 84-year-old gentleman with coronary artery disease and status post PCI to mid and distal RCA in 2002 followed by PCI to mid LAD in 2015 and again in March 2023, new onset atrial fibrillation, lower GI bleed and had 8 units of packed red blood cells, acid reflux, chronic kidney disease stage IIIa, hypertension, hyperlipidemia and obesity is here for annual physical. He was recently admitted at [facility] and was found to have new onset atrial fibrillation with RVR and acute on chronic congestive heart failure. He recently saw his sheeter machine operator Dr. Maria. Plan is as follows Ischemic cardiomyopathy/CHF with preserved EF. His EF was 50% but on last admission at [facility] EF is 25-30%. He was taken off Lasix and started on Farxiga 10 mg along with beta-blockers. advised to do daily weights, avoids salt and if his weight is going up he will take Lasix as needed and inform us. New onset atrial fibrillation. He is not a candidate for anticoagulation because of his GI bleed. Currently on aspirin and he has appointment for watchman procedure. Severe to moderate aortic stenosis. Cardiology will do periodic echocardiogram for surveillance. Hypertension/hyper lipidemia. Blood pressure reasonably controlled on current regimen. He is on atorvastatin 80 mg daily which she will continue and check blood work GI bleed/acid reflux. Continue Protonix 40 mg daily. Obesity. Dietary restrictions discussed and advised to lose on average 6 pounds a month. He is up-to-date on age specific screening. He is full code and his is his healthcare proxy. 08/25/2025 Chronic kidney disease, stage 3a (ICD-10 - N18.31) Mr. Ryan is pleasant 84-year-old gentleman with coronary artery disease and status post PCI to mid and distal RCA in 2002 followed by PCI to mid LAD in 2015 and again in March 2023, new onset atrial fibrillation, lower GI bleed and had 8 units of packed red blood cells, acid reflux, chronic kidney disease stage IIIa, hypertension, hyperlipidemia and obesity is here for follow-up on blood work He was recently admitted at [facility] and was found to have new onset atrial fibrillation with RVR and acute on chronic Congestive heart failure. He recently saw his sheeter machine operator Dr. Maria. Plan is as follows Ischemic cardiomyopathy/CHF with preserved EF. His EF was 50% but on last admission at [facility] EF is 25-30%. He was taken off Lasix and started on Farxiga 10 mg along with beta-blockers. advised to do daily weights, avoids salt and if his weight is going up he will take Lasix as needed and inform us. New onset atrial fibrillation. He is not a candidate for anticoagulation because of his GI bleed. Currently on aspirin and he has appointment for watchman procedure. Severe to moderate aortic stenosis. Cardiology will do periodic echocardiogram for surveillance. Hypertension/hyper lipidemia. Blood pressure reasonably controlled on current regimen. He is on atorvastatin 80 mg daily which she will continue and check blood work. Chronic kidney disease stage IIIa. He is stable at this point in time. He is on the right medications. Avoid NSAIDs. Daily weights. GI bleed/acid reflux. Continue Protonix 40 mg daily. Anemia. Continue ferrous sulfate 325 mg 1 tablet twice a day. Obesity. Dietary restrictions discussed and advised to lose on average 6 pounds a month. He is up-to-date on age specific screening. He is full code and his is his healthcare proxy. 08/25/2025 Nonrheumatic aortic (valve) stenosis (ICD-10 - I35.0) Mr. Ryan is carol 84-year-old gentleman with coronary artery disease and status post PCI to mid and distal RCA in 2002 followed by PCI to mid LAD in 2015 and again in March 2023, new onset atrial fibrillation, lower GI bleed and had 8 units of packed red blood cells, acid reflux, chronic kidney disease stage IIIa, hypertension, hyperlipidemia and obesity is here for follow-up on blood work He was recently admitted at [facility] and was found to have new onset atrial fibrillation with RVR and acute on chronic Congestive heart failure. He recently saw his sheeter machine operator Dr. Maria. Plan is as follows Ischemic cardiomyopathy/CHF with preserved EF. His EF was 50% but on last admission at [facility] EF is 25-30%. He was taken off Lasix and started on Farxiga 10 mg along with beta-blockers. advised to do daily weights, avoids salt and if his weight is going up he will take Lasix as needed and inform us. New onset atrial fibrillation. He is not a candidate for anticoagulation because of his GI bleed. Currently on aspirin and he has appointment for watchman procedure. Severe to moderate aortic stenosis. Cardiology will do periodic echocardiogram for surveillance. Hypertension/hyper lipidemia. Blood pressure reasonably controlled on current regimen. He is on atorvastatin 80 mg daily which she will continue and check blood work. Chronic kidney disease stage IIIa. He is stable at this point in time. He is on the right medications. Avoid NSAIDs. Daily weights. GI bleed/acid reflux. Continue Protonix 40 mg daily. Anemia. Continue ferrous sulfate 325 mg 1 tablet twice a day. Obesity. Dietary restrictions discussed and advised to lose on average 6 pounds a month. He is up-to-date on age specific screening. He is full code and his is his healthcare proxy. 02/22/2025 Nonrheumatic aortic (valve) stenosis (ICD-10 - I35.0) Mr. Ryan is pleasant 84-year-old gentleman with coronary artery disease and status post PCI to mid and distal RCA in 2002 followed by PCI to mid LAD in 2015 and again in March 2023, new onset atrial fibrillation, lower GI bleed and had 8 units of packed red blood cells, acid reflux, chronic kidney disease stage IIIa, hypertension, hyperlipidemia and obesity is here for annual physical. He was recently admitted at [facility] and was found to have new onset atrial fibrillation with RVR and acute on chronic congestive heart failure. He recently saw his sheeter machine operator Dr. Maria. Plan is as follows Ischemic cardiomyopathy/CHF with preserved EF. His EF was 50% but on last admission at [facility] EF is 25-30%. He was taken off Lasix and started on Farxiga 10 mg along with beta-blockers. advised to do daily weights, avoids salt and if his weight is going up he will take Lasix as needed and inform us. New onset atrial fibrillation. He is not a candidate for anticoagulation because of his GI bleed. Currently on aspirin and he has appointment for watchman procedure. Severe to moderate aortic stenosis. Cardiology will do periodic echocardiogram for surveillance. Hypertension/hyper lipidemia. Blood pressure reasonably controlled on current regimen. He is on atorvastatin 80 mg daily which she will continue and check blood work GI bleed/acid reflux. Continue Protonix 40 mg daily. Obesity. Dietary restrictions discussed and advised to lose on average 6 pounds a month. He is up-to-date on age specific screening. He is full code and his is his healthcare proxy. 08/25/2025 Anemia, unspecified (ICD-10 - D64.9) Mr. Ryan is pleasant 84-year-old gentleman with coronary artery disease and status post PCI to mid and distal RCA in 2002 followed by PCI to mid LAD in 2015 and again in March 2023, new onset atrial fibrillation, lower GI bleed and had 8 units of packed red blood cells, acid reflux, chronic kidney disease stage IIIa, hypertension, hyperlipidemia and obesity is here for follow-up on blood work He was recently admitted at [facility] and was found to have new onset atrial fibrillation with RVR and acute on chronic Congestive heart failure. He recently saw his sheeter machine operator Dr. Maria. Plan is as follows Ischemic cardiomyopathy/CHF with preserved EF. His EF was 50% but on last admission at [facility] EF is 25-30%. He was taken off Lasix and started on Farxiga 10 mg along with beta-blockers. advised to do daily weights, avoids salt and if his weight is going up he will take Lasix as needed and inform us. New onset atrial fibrillation. He is not a candidate for anticoagulation because of his GI bleed. Currently on aspirin and he has appointment for watchman procedure. Severe to moderate aortic stenosis. Cardiology will do periodic echocardiogram for surveillance. Hypertension/hyper lipidemia. Blood pressure reasonably controlled on current regimen. He is on atorvastatin 80 mg daily which she will continue and check blood work. Chronic kidney disease stage IIIa. He is stable at this point in time. He is on the right medications. Avoid NSAIDs. Daily weights. GI bleed/acid reflux. Continue Protonix 40 mg daily. Anemia. Continue ferrous sulfate 325 mg 1 tablet twice a day. Obesity. Dietary restrictions discussed and advised to lose on average 6 pounds a month. He is up-to-date on age specific screening. He is full code and his is his healthcare proxy. Plan Of Treatment Future Test Test Name Order Date CBC, Platelet, No Differential-[id number] Next Appt Details Provider Name:OZZY ANDERSON , 04/17/2026 03:00:00 PM, [address] [place] [address], [id number], Insurance Providers Payer Name Payer Address Payer Phone Subscriber Number Group Number Insured Name Patient Relationship to Insured Coverage Start Date Coverage End Date [employer] MED[employer] COMPLETE [address] [address] [place] [phone] [id number] Self - patient is the insured Medical (General) History Medical History History ICD Code CAD s/p stent placement and he sees Dr. Maria hypertension hyperlipidemia GERD iron deficiency anemia PUD s/p blood transfusion ischemic cardiomyopathy New onset atrial fibrillation Surgical History Surgery Date(Month/Year) CAD s/p stent placement x 2, first placement in 2002, second placement was last April 2023 cholecystectomy 2022
--- OUTSIDE RECORDS SUMMARY | 2025-09-08 03:37 | XMS_ITS | Data Portability ---
Author Organization [facility], [address] Address [address] [place] [address] Assessment No assessment recorded. Plan of Treatment Reminders Order Date Submit Date Provider Last Modified By Organization Details Last Modified Time Details Appointments None recorded. Lab rapid SARS CoV 2 Ag, QL IA, respiratory specimen 2022 023 skeal [address] [address], [address] [place], [address], 3 18:48:38 rapid flu (A+B) 2022 023 skealy2 [address] [address], [address] [place], [address], 3 18:48:38 Referral None recorded. Procedures None recorded. Surgeries None recorded. Imaging None recorded. Medication Orders doxycycline hyclate 100 mg capsule 2022 023 [id number], [address], [place], [id number], 3 18:48:45 Patient TargetsNo targets recorded. Patient Instructions Encounter Date Encounter Id Patient Instructions Last Modified By Organization Details Last Modified Time 11/01/2022 [id number] pneumonia: care instructions [facility] Not available 11/01/2022 18:49:05 Please follow up with PCP or Urgent Care in 3-5 days if no improvement or if any new symptoms occur that are concerning. Call 911 or go to nearest ER if you develop any shortness of breath, chest pain, severe headache, dizziness, or other concerning symptoms [email or web address] Not available 11/01/2022 18:51:31 Reason for Referral None Reported. Results Created Date Observation Date Name Description Value Unit Range Abnormal Flag Note LastModifiedBy Organization Detail LastModifiedTime 11/01/1911/01/2022 rapid flu (A+B) Unknown Analyte Normal = Negati ve Not Available [address] [place], [address], 11/01/2022 18:04:58 11/01/19 23 11/01/2022 rapid flu (A+B) Unknown Analyte negati ve Not Available [address] [place], [address], 11/01/2022 18:04:58 11/01/19 23 11/01/2022 rapid flu (A+B) Unknown Analyte Normal = Negati ve Not Available [facility] [address] [place], [address], 11/01/2022 18:04:58 11/01/19 23 11/01/2022 rapid flu (A+B) Unknown Analyte negati ve Not Available [address] [place], [address], 11/01/2022 18:04:58 11/01/19 23 11/01/2022 rapid SARS CoV 2 Ag, QL IA, respi rator y speci men Unknown Analyte Normal =Negat francine Not Available [address] [place], [address], 11/01/2022 18:02:52 11/01/1911/01/2022 rapid SARS CoV 2 Ag, QL IA, respi rator y speci men Unknown Analyte negati ve Not Available [address] [place], [address], 11/01/2022 18:02:52 Result Notes None recorded. Problems Name Problem SNOMED Code Status Onset Date Resolution Date Notes Provider Name and Address Organization Details Recorded Time Hyperlipidemia 29040463 Active [facility] 18:04:34 Problem Notes None recorded. Medical Equipment None Reported. Allergies No known drug allergies Medications Name Sig Start Date Stop Date Status Note LastModified by Organization Details LastModified Time doxycycline hyclate 100 mg capsule Take 1 capsule twice a day by oral route for 10 days. 2022 active Not Available Not Available Not Avai lable atorvastatin active Not Available Not Available Not Available Vitals Date Recorded Body height Body mass index (BMI) Body weight Oxygen saturation Oxygen saturation in Arterial blood by Pulse oximetry Heart rate Body temperature Respiratory rate Systolic And Diastolic Provider Name and Address Organization Details Last Updated DateTime 167.64 cm 33.6 kg/m2 56112.2 1 g 97 % 97 % 83 /min 98 [degF] 18 /min 137/67 mm[Hg] Waldo Mcneal [facility] 18:03:44 Social History Question Answer Notes LastModified by Organization D etails LastModified Time Have You Had Direct Contact, Or Contact During Intimacy, With Monkeypox Rash, Scabs, Or Body Fluids From A Person With Monkeypox? No Information not available 11/01/2022 Have You Recently Traveled Abroad? No Information not available 11/01/2022 Sex: Unknown Functional Status Question Answer Note LastModified by Organizat ion Details LastModified Time Do you use any illicit or recreational drugs? No Information not available 11/01/2022 Do you or have you ever used any other forms of tobacco or nicotine? No Information not available 11/01/2022 Mental Status None recorded. Family History Relationship Description Onset Age of this Age Resolved Age Notes LastModified by Organization Details LastModified Time Father No current problems or disability Not available 11/01 18:04:36 Mother No current problems or disability Not available 11/01 18:04:36 Medical History No medical history recorded. Immunizations Vaccine Type Date Status Note Provider Nam e and Address Organization Details Recorded Time COVID-19, mRNA, LNP-S, bivalent, PF, 30 mcg/0.3 mL dose 2 completed Waldo Julieth null, [place] - [facility] 11/01/2022 18:04:10 COVID-19, mRNA, LNP-S, PF, 30 mcg/0.3 mL dose, yajaira-sucrose 2 completed Waldo Julieth null, [place] - [facility] 11/01/2022 18:04:10 COVID-19, mRNA, LNP-S, PF, 30 mcg/0.3 mL dose 1 completed Waldo Julieth null, [place] - [facility] 11/01/2022 18:04:10 Pneumococcal conjugate PCV 13 0 completed Waldo Julieth null, [place] - [facility] 11/01/2022 18:04:10 Influenza, MDCK, quadrivalent, preservative 0 completed Waldo Julieth null, [place] - [facility] 11/01/2022 18:04:10 Influenza, MDCK, quadrivalent, preservative 2 completed Waldo Julieth null, [place] - [facility] 11/01/2022 18:04:10 zoster recombinant 1 completed Waldo Julieth null, PA - [facility] 11/01/2022 18:04:10 zoster recombinant 0 completed Waldo Julieth null, PA - [facility] 11/01/2022 18:04:10 Influenza, MDCK, quadrivalent, preservative 1 completed Waldo Julieth null, [place] - [facility] 11/01/2022 18:04:10 COVID-19 vaccine, vector-nr, rS-Ad26, PF, 0.5 mL 1 completed Waldo Julieth null, [place] - [facility] 11/01/2022 18:04:10 Past Encounters Encounter ID Performer Location Encounter Start Date Encounter Closed Date Diagnosis/Indication Diagnosis SNOMED-CT Code Diagnosis ICD10 Code Diagnosis IMO Codes Diagnosis [place] [id number] [place] [address] [facility] [address] [facility] [place] [address] 11/01/2022 14:38:15 11/01/2022 18:50:29 Pneumonia 053223521 J18.9 Should follow up with PCP for lung exam in the next 3-5 daysER if there is any worsening Health Concerns Section Related Observation LastModified by Organization Detai ls LastModified Time None Recorded Concern Status LastModified by Organization Details LastModified Time None Recorded Advance Directives Directive None Recorded Payers Insurance Date Sequence Insurance Name Policy Number Policy Watkins Covered Member ID Watkins Member ID Guarantor Name 11/01/2022 1 [facility] (MEDICARE REPLACEMENT/A DVANTAGE - PPO) [id number] Ashwin Shelby [id number] Ashwin Shelby 11/01/2022 1 [facility] (MEDICARE REPLACEMENT/A DVANTAGE - PPO) [id number] Ashwin Shelby [id number] Ashwin Shelby Notes Date Note Type Note Provider Name and Address Organization Details Recorded Time 11/01/2022 text/html CoughReported by Patient3 days of cough. Denies fever. Appetite is normal. Vomited once 3 days ago. Rasheed Gu MD [address] [place], [address], [place] - [facility] 11/01/2022 18:51:53
== END 2025-09-07 15:32 | disposition home or self-care (01) ==
LOC: HO.HKAS 15:01
PROVIDERS: PCP Hospitalist; Visit Provider Internal Medicine Hypertension Specialist
DX: N18.9 Chronic kidney disease, unspecified (principal); D64.9 Anemia, unspecified
CPT/HCPCS: 99204

== ENCOUNTER → 2025-09-07 15:00 | Outpatient (BNVA) | payer MEDICARE, SELFPAY | PROVIDERS: PCP Hospitalist; Visit Provider Internal Medicine Hypertension Specialist | DX: I13.0 Hypertensive heart and chronic kidney disease with heart failure and stage 1 through stage 4 chronic kidney disease, or unspecified chronic kidney disease (principal); N18.31 Chronic kidney disease, stage 3a; Z87.891 Personal history of nicotine dependence; I50.43 Acute on chronic combined systolic (congestive) and diastolic (congestive) heart failure; D64.9 Anemia, unspecified | CPT/HCPCS: 99202 ==

== ENCOUNTER 2025-09-28 07:36 | Outpatient (REF) | payer MEDICARE, SELFPAY ==
--- NOTE | ~2025-09-28 | US_ITS ---
CLINICAL HISTORY: N18.9 - Chronic kidney disease, unspecified US renal with Color Doppler Comparison: None Findings: Right kidney normal size and echotexture, 10.2 cm length. No hydronephrosis calculus or mass. Normal color flow. Renal cortical cysts largest measuring 1.7 x 1.7 x 2.3 cm Left kidney normal size and echotexture, 11.9 cm length. No hydronephrosis calculus or mass. Normal color flow. Renal cortical cysts largest measuring 1.6 x 1.8 x 1.6 cm Spleen measures 16 cm Impression: 1. Kidneys normal-size and position with normal cortical width and echotexture. Bilateral probable renal cortical cysts can be correlated with a contrast-enhanced CT or MRI. Splenomegaly. This document has been electronically signed by: Chepe Pierre MD on 09/29/2025 09:57:13
== END 2025-09-28 07:37 | disposition home or self-care (01) ==
LOC: HO.US 07:36
PROVIDERS: PCP Hospitalist; Visit Provider Internal Medicine Hypertension Specialist
DX: N18.9 Chronic kidney disease, unspecified (principal)
CPT/HCPCS: 76775

== ENCOUNTER → 2025-09-28 07:39 | Outpatient (BNV) | payer MEDICARE, SELFPAY | PROVIDERS: PCP Hospitalist; Visit Provider Radiology Diagnostic Radiology | DX: N18.9 Chronic kidney disease, unspecified (principal) | CPT/HCPCS: 76775 ==